=== PATIENT | male | born 1990 | race Caucasian/White ===

== ENCOUNTER 2016-07-10 19:25 | Emergency (ER) | payer SELFPAY ==
[~2016-07-10] VITALS: Ht 170.2 cm; Wt 78.5 kg
[2016-07-10 19:45] VITALS: Ht 170.2 cm; Wt 78.5 kg
[2016-07-10] MEDS ORDERED: LIDOCAINE 1% (MDV) 20 ML INJ SC ONE (20:30)
[2016-07-10] MEDS ORDERED: HYDROCODONE/APAP (5/325) TAB PO ONE (20:30)
--- NOTE | 2016-07-10 21:04 | RADRPT ---
PROCEDURE: XR Right Hand CLINICAL INDICATION: Injury, laceration on palm side of hand TECHNIQUE: AP, oblique, and lateral radiographs were submitted. COMPARISON: None FINDINGS: Osseous structures: appear well mineralized and intact with no fracture or destructive process iden tified. Joint spaces: are well maintained, with no significant spurring, erosion or joint effusion evident. Soft tissues: appear unremarkable. IMPRESSION: Unremarkable right hand. Physician Ron Date Time Electronically viewed and signed by Rebecca Childs Physician on 07/10/2016 21:03 /
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
[2016-07-10] MEDS ORDERED: IBUP-1542 PO (22:42)
[2016-07-10 22:59] VITALS: BP 120/70; PULSE 82; RESP 16; TEMP 97.7
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
== END 2016-07-10 23:01 | disposition home or self-care (01) ==
LOC: FTE 19:25
DX: S61.411A Laceration without foreign body of right hand, initial encounter (principal); V49.49XA Driver injured in collision with other motor vehicles in traffic accident, initial encounter

== ENCOUNTER 2016-07-12 12:43 | Emergency (ER) | payer OTHER ==
[~2016-07-12] VITALS: Ht 170.2 cm; Wt 77.0 kg
[~2016-07-12 12:43] MED LIST: IBUP-1542 PO
[2016-07-12 12:53] VITALS: Ht 170.2 cm; Wt 77.0 kg
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
== END 2016-07-12 14:17 | disposition home or self-care (01) ==
LOC: FTE 12:43
DX: Z48.01 Encounter for change or removal of surgical wound dressing (principal)
CPT/HCPCS: 99281

== ENCOUNTER 2016-07-17 16:38 | Emergency (ER) | payer OTHER ==
[~2016-07-17] VITALS: Wt 73.6 kg
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
== END 2016-07-17 17:30 | disposition home or self-care (01) ==
LOC: FTE 16:38
DX: Z48.02 Encounter for removal of sutures (principal)
CPT/HCPCS: 99281